=== PATIENT | female | born 1985 | race Caucasian/White ===

== ENCOUNTER 2021-08-15 13:29 | Outpatient (CLI) | payer OTHER, SELFPAY ==
--- NOTE | ~2021-08-15 | US_ITS ---
EXAMINATION: US pelvic complete DATE: 08/15/2021 13:55 INDICATION: Heavy periods. Comparison:No prior studies for comparison. TECHNIQUE: Multiple transabdominal and endovaginal sonographic images of the pelvis performed. FINDINGS: The uterus measures 7.2 x 3.3 x 4.2 cm. The endometrial complex measures 4.6 mm. There is a n IUD in the endometrium. The right ovary measures 3.5 x 3.4 x 2.6 cm and the left ovary measures 3 x 2.1 x 1.9 cm. There are small follicles in each ovary. There is a 1.8 cm right ovarian cyst. Normal doppler signal in both ov debra. There is no free fluid in the pelvis. There are no abnormal masses seen on either side. IMPRESSION: 1. Right ovarian cyst measuring 1.8 cm. Reviewed, dictated and finalized at location A. SELING CASE MANAGER
== END 2021-08-15 13:30 ==
PROVIDERS: Visit Provider Nurse Practitioner
DX: N83.201 Unspecified ovarian cyst, right side (principal); N93.9 Abnormal uterine and vaginal bleeding, unspecified
CPT/HCPCS: 76856

== ENCOUNTER 2021-09-16 01:04 | Day surgery (SDC) | payer OTHER, SELFPAY ==
[2021-09-11 09:55] VITALS: BMI 27.3
--- NOTE | 2021-09-11 10:14 | PC.NURSE ---
Report to the Outpatient Waiting Room, entrance under the green pavilion located off [facility], at 0615 on 09-16-21. OR Time: 0815. - You and your visitor will be asked a series of questions to screen for COVID 19 for your protection. - A mask is required within the hospital. Preoperative COVID Testing Requirements: No COVID Test needed if: (proof is required; if not received patient will have Rapid Test prior to entry) - Patient has received COVID Vaccine at least 14 days prior to procedure date or - Patient has positive COVID test result within last 90 days of surgery date. COVID Test needed if above criteria is not met If not COVID vaccinated a COVID test must be conducted within 72 hours of surgery and patient is asked to isolate self from time of testing until procedure. You will go to the [facility] for your COVID testing. The [facility] is located at the corner of [address] [facility]. You will only be called if COVID results are positive and your surgeon may reschedule your elective surgery date. Patients may have clear liquids (water, carbonated beverages, clear teas, apple juice) until 3 hours prior to surgery with a maximum of 20 ounces. 0515 - No food from midnight until time of surgery - Infants may have breast milk until 4 hours before surgery, formula 6 hours prior to surgery. - Children will be allowed to drink immediately following surgery. If applicable, please bring a bottle or sippy cup to assist with drinking. Juice, water, soda, and popsicles are readily available. For infants on formula, please bring formula the day of surgery. Pacifiers are allowed. Take the following medications with a SIP of water the morning of surgery: Sertraline Medications to discontinue per physician N/A Date to take last dose N/A Please no make-up, nail french, hairspray, perfume, deodorant, or body powder the day of surgery. No jewelry (including any body piercings) or valuables the day of surgery, leave them at home. Please take a shower or bath the night before, or the morning of, surgery with an antibacterial soap. Wear comfortable, loose fitting clothing. Children are encouraged to wear pajamas. - Jewelry must be removed prior to entering the operating room. Rings and piercings that are not removed may be cut off. - The hospital will not accept responsibility for valuables. - Please leave all valuables, including medications, at home the day of surgery. If you are going home after surgery, a licensed tour bus driver/guide must drive you home. - NO public transportation without another adult. - We recommend that an adult stay with you for 24 hours following discharge. - We also recommend that you do not drive, make important decision, drink alcoholic beverages, or take any drugs that were not prescribed by your health care provider for at least 24 hours after your discharge time. For Pediatric surgeries, we recommend two adults accompany the child home (only one inside the building at this time). One visitor will be allowed to accompany the patient into the hospital. Patients visitor will be instructed to remain with patient at all times or leave the building. We will allow the visitor to come back to the postoperative area when patient is ready. Follow any additional instructions given to you from your surgeon. Telephone instructions given to Abby Raymond and asked if any additional questions and then verbalized understanding. Patient advised to call surgeon office or pre surgery nurse liaison [phone] if any additional questions.
[2021-09-16] MEDS: ACETAMINOPHEN 500 MG TABLET 1000 MG PO (06:55)
[2021-09-16] MEDS: LACTATED RINGERS 1,000 ML 30 ML IV CONT (07:00)
[2021-09-16 07:19] VITALS: BP 109/64; PULSE 72; RESP 14; TEMP 36.2; O2SAT 100; BMI 26.4
--- NOTE | 2021-09-16 07:22 | P.PNAN_ITS ---
Anes - Initial Pre Proc Eval Procedure: Operation Date: 09/16/21 08:15 Proposed Procedures p Hysteroscopy, Radha Endometrial Ablation with Removal of Intrauterine Device - Shahnaz Pritchard MD Date/Time: 09/16/21 07:22 Surgeon: Shahnaz Pritchard MD Pre Op Diagnosis: menorrhagia Patient Data Age: 36 Gender: F Height: 1.7 m Weight: 79.38 kg Allergies Allergy/AdvReac Type Severity Reaction Status Date / Time prochlorperazine Allergy Mild Muscle Verified 09/16/21 07:24 Spasms Home Medications Medication Instructions Recorded Confirmed Type cetirizine [Zyrtec] 10 mg PO DAILY 09/11/21 09/11/21 History clonazepam 0.5 mg PO HS 09/11/21 09/11/21 History ropinirole 0.25 mg PO HS 09/11/21 09/11/21 History sertraline 100 mg PO DAILY 09/11/21 09/11/21 History topiramate 25 mg PO HS 09/11/21 09/11/21 History Patient hx anesthesia problems: none Family hx anesthesia problems: none Results Review: All pre-operative results and documents have been reviewed as part of the pre-operative evaluation. [facility] Past Medical History Medical History (Updated 09/16/21 @ 07:26 by Hunter Person MD) Labral tear of right hip joint Overweight Plantar fasciitis Social History Social History Smoking status: Never smoker Second hand tobacco smoke exposure: No Alcohol intake: unknown Substance use: never Substance use type: does not use Living arrangements: with family Spiritual care concerns: No Anes - Eval Final PreProcedure Day of Procedure 09/16/21 07:22 Patient weight: overweight Heart: regular rate and rhythm Lungs: clear to auscultation Airway: Mallampati scale class II Neurological: alert and oriented Last oral intake: >/= 8 hours ASA classification: II Emergent: no Anesthetic plan: proceed Anesthesia type and monitoring: general GIVS and standard monitoring Results Review: All pre-operative results and documents have been reviewed as part of the pre-operative evaluation. Informed Consent: The patient's anesthetic plan and its attendant risks and benefits were discussed with the patient/family/POA. Questions were solicited and answers provided to the satisfaction of the patient/family/POA.
--- NOTE | 2021-09-16 07:24 | WPDHPUPDATE1 ---
History and Physical Update Update Date/Time: 09/16/21 07:24 History and Physical has been reviewed, including an updated exam of the patient. There are NO changes in the patient's condition. Risks, benefits, and alternatives have been discussed and questions answered. Patient agrees to proceed with procedure.
--- NOTE | 2021-09-16 07:25 | PM.HPGS ---
History of Present Illness History of Present Illness Consent: Risks, benefits, and alternatives have been discussed and questions answered. Patient agrees to proceed with procedure. Chief complaint: menorrhagia Narrative: Abby Raymond is a 36 year old female With menorrhagia uncontrolled by IUD. Patient states she has random bleeding from 1 to 7 days and has had increased cramping with the IUD. She states she is using pads and changing approximately every hour on the heavy days. She has a history of prior oral contraceptive and patch use without success. In addition she has used the Depo-Provera in the past and had side effects. She has elected to proceed with endometrial ablation. Risks of infection, bleeding, and perforation were reviewed. In addition the IUD will be removed at the same time. Patient is aware this is not control and her spouse has had a vasectomy. Success rates of the endometrial ablation were reviewed. Patient voiced understanding and agrees to proceed. Review of Systems Constitutional: Constitutional: Reports fatigue Gastrointestinal: Gastrointestinal: Reports nausea Genitourinary: Genitourinary: Reports vaginal dryness Neurologic: Reports headache(s) Psychiatric: Psychiatric: Reports anxiety PMFSH Past Medical History Medical History (Updated 09/16/21 @ 07:53 by Shahnaz Pritchard MD) Labral tear of right hip joint Migraines (normal spontaneous vaginal delivery) Overweight Plantar fasciitis Status post hysteroscopy 09/03 normal Social History Social History Smoking status: Never smoker Second hand tobacco smoke exposure: No Alcohol intake: unknown Substance use: never Substance use type: does not use Living arrangements: with family Spiritual care concerns: No Meds Home Medications and Allergies Home Medications Medication Instructions Recorded Confirmed Type cetirizine [Zyrtec] 10 mg PO DAILY 09/11/21 09/11/21 History clonazepam 0.5 mg PO HS 09/11/21 09/11/21 History ropinirole 0.25 mg PO HS 09/11/21 09/11/21 History sertraline 100 mg PO DAILY 09/11/21 09/11/21 History topiramate 25 mg PO HS 09/11/21 09/11/21 History Allergies Allergy/AdvReac Type Severity Reaction Status Date / Time prochlorperazine Allergy Mild Muscle Verified 09/16/21 07:24 Spasms Vital Signs Vital Signs - 24 hr 09/16/21 07:19 Temperature 97.2 F L Pulse Rate 72 Respiratory Rate 14 Blood Pressure 109/64 Pulse Oximetry 100 Exam Const: General: healthy appearing and alert Orientation/consciousness: patient oriented x3 Resp: Effort & Inspection: normal respiratory effort Auscultation: clear to auscultation bilaterally Cardio: Rate: regular rate Rhythm: regular rhythm GI: GI Palp: Yes Soft to palpation, No Tenderness to palpation present (GI) and No Palpable mass present : External Female Exam: normal external appearance Speculum Exam - Vagina: normal appearance of the vagina and normal vaginal discharge Speculum Exam - Cervix: normal appearance of the cervix Bimanual exam- vagina & uterus: uterine size normal and consistency normal Bimanual Exam- Adnexa, other: normal adnexae and No adnexal tenderness Neuro: General: patient oriented x3 Assessment and Plan Assessment and plan (1) Menorrhagia: Code(s): N92.0 - Excessive and frequent menstruation with regular cycle Status: Acute Assessment and Plan: Plan to proceed with IUD removal and Radha endometrial ablation
--- NOTE | 2021-09-16 08:32 | W.PM.PROC2 ---
Procedure Note - Detailed Date of Procedure 09/16/21 Pre-op Diagnosis menorrhagia Post-op Diagnosis Same Procedure Performed Removal of IUD and Radha endometrial ablation Surgeon Shahnaz Pritchard MD Anesthesia MAC and Local Findings Uterus sounds to 8 cm and appears grossly normal Description of Procedure The patient was taken to the operating room and placed under anesthesia in the dorsal lithotomy position. [place] speculum was placed in the vagina. Cervix is grasped on the anterior lip with a tenaculum and the intrauterine device strings are grasped with a ring forceps. IUD was removed intact and discarded. The uterus then sounds to 8cm. The cervix is serially dilated with [place] to an 8. The diagnostic hysteroscope was placed with no abnormalities noted. The MyoSure device is opened and placed at 5cm. The cavity assessment did not pass the 2nd test. The device is removed and reset to 4.5cm and the cavity assessment passed. Treatment cycle lasted full 2minutes. Device is then removed and the hysteroscope replaced with good ablation effect noted. All instruments are removed. Patient is awakened from anesthesia and taken to recovery in stable condition. Sponge, needle, and instrument counts are correct per the OR staff. Estimated Blood Loss 5 Drains No Pathology None sent Complications No immediate complications Condition Stable Disposition PACU
[2021-09-16 08:35] VITALS: BP 103/71; PULSE 72; RESP 19; O2SAT 99
[2021-09-16] MEDS: oxyCODONE HCL (*CRX) 5 MG TAB IR PO (09:04)
[2021-09-16 09:05] VITALS: BP 104/66; PULSE 69; RESP 20
[2021-09-16 09:35] VITALS: BP 102/69; PULSE 68; RESP 20
== END 2021-09-16 09:42 | disposition home or self-care (01) ==
PROVIDERS: PCP Family Medicine; Visit Provider Obstetrics & Gynecology Gynecology
PROC: 0U5B8ZZ Destruction of Endometrium, Via Natural or Artificial Opening Endoscopic (ICD-10-PCS; CPT 58563; principal; 2021-09-16 08:15)
DX: N92.0 Excessive and frequent menstruation with regular cycle (principal)
CPT/HCPCS: 58563; A9270; J2250; J2704; J3010; J7120